=== PATIENT | male | born 1980 | race Hispanic/Latino ===

== ENCOUNTER 2020-09-24 23:49 | Emergency (ER) | payer SELFPAY ==
--- NOTE | ~2020-09-24 | CT_ITS ---
EXAMINATION: CT abdomen pelvis w con DATE: 09/25/2020 01:10 INDICATION: Abdominal pain. Vomiting. TECHNIQUE: Computed tomography (CT) of the abdomen and pelvis was performed with 100 mL Omnipaque 350 intravenous contrast. Automated exposure control and iterative reconstruction technique were employe d. The dose-length product was 747.72 mGy-cm. COMPARISON: None. FINDINGS: The visualized portions of the lung bases demonstrate mild atelectasis. No pleural effusion . The heart size is normal. No pericardial effusion. There is diffuse hepatic steatosis. The gallblad lyle, spleen, pancreas, adrenal glands, and kidneys are normal. There are no dilated loops of bowel. T he appendix is normal. There are no pathologically enlarged lymph nodes. There is no free intraperito [place] fluid. There is mild lumbar spondylosis. IMPRESSION: 1. Diffuse hepatic steatosis. Reviewed, dictated and finalized at location A.
[2020-09-25 00:31] VITALS: BP 165/123; PULSE 80; RESP 18; TEMP 36.9; O2SAT 100
[2020-09-25] MEDS: FAMOTIDINE 20 MG/2 ML VIAL IV PUSH (00:44)
[2020-09-25] MEDS: ONDANSETRON INJ 4 MG/2 ML VIAL IV PUSH ×2 (00:44→01:12)
[2020-09-25] MEDS: PANTOPRAZOLE SODIUM IV 40 MG VIAL IV PUSH (00:45)
[2020-09-25] MEDS: SODIUM CHLORIDE 0.9% IV 1,000 ML 999 ML IV CONT ×3 (00:45→03:42)
[2020-09-25 00:52] LABS: Basophils Percent Auto 0.3 % (0.2-1.2); Eosinophils Percent Auto 0.1 % (0-4.4); Hematocrit 47.3 % (42.0-52.0); Hemoglobin 16.5 g/dL (14.0-18.0); Immature Granulocyte Absolute 0.07 K/mm3 (0.00-0.031); Immature Granulocyte Percent A 0.6 % (0-0.5); Lymphocytes Absolute Auto 1.52 K/mm3 (0.9-3.2); Lymphocytes Percent Auto 13.9 % (18.3-44.2); Mean Corpuscular HGB Conc 34.9 g/dl (32-36); Mean Corpuscular Hemoglobin 34.6 pg (26-34); Mean Corpuscular Volume 99.2 fl (80-100); Mean Platelet Volume 10.2 fl (7.4-10.4); Monocytes Absolute Auto 0.8 K/mm3 (0.1-0.6); Monocytes Percent Auto 6.9 % (2.6-8.5); Neutrophils Absolute Auto 8.6 K/mm3 (1.3-6.7); Neutrophils Percent Auto 78.2 % (45.5-73.1); Platelet Count Result 169 k/mm3 (150-375); Red Blood Count 4.77 M/mm3 (4.6-6.20); Red Cell Distribution Width 13.2 % (11.5-14.5); White Blood Count 10.9 K/mm3 (4.5-10.0)
[2020-09-25 00:58] LABS: Estimated Glomerular Filt Rate > 60
[2020-09-25 01:03] LABS: Add Urine Microscopic? YES; Appearance Urine Cloudy (Clear); Bacteria Urine Trace /hpf; Bilirubin Urine Negative (Negative); Blood Urine Negative (Negative); Color Urine Yellow (Yellow); Glucose Urine UA Negative (Negative); Ketones Urine Negative (Negative); Leukocyte Esterase Ur Trace LEU/UL (Negative); Mucus Urine Moderate /lpf; Nitrate Urine Negative (Negative); Protein Urine 1+ mg/dL (Negative); Specific Grav Ur 1.019 (1.001-1.035); Squamous Epithelial Cell Urine Occasional /hpf (Few); WBC Urine 16-20 /hpf
[2020-09-25 01:08] LABS: Prothrombin Time 13.5 Seconds (11.1-14.7)
[2020-09-25 01:09] LABS: Partial Thromboplastin Time 24.9 SECONDS (22.3-36.8)
[2020-09-25 01:16] LABS: Albumin Level 4.4 g/dL (3.5-5.1); Alkaline Phosphatase 116 U/L (38-126); Anion Gap 12 mmol/L (8-16); Aspartate Amino Transferase 119 U/L (17-59); Bilirubin,Total 0.8 mg/dL (0.2-1.3); Blood Urea Nitrogen 5 mg/dL (9-20); Calcium 8.9 mg/dL (8.4-10.2); Carbon Dioxide 26 mmol/L (22-30); Chloride 103 mmol/L (98-107); Estimated Glomerular Filt Rate > 60; Glucose 130 mg/dL (75-110); Lipase 98 U/L (23-300); Potassium 3.4 mmol/L (3.4-5.0); Sodium 141 mmol/L (137-145)
[2020-09-25 01:37] LABS: Lactic Acid Reflex 4.4 mmol/L (0.7-2.1)
[2020-09-25 01:38] LABS: Alanine Aminotransferase 73 U/L (4-50)
[2020-09-25 01:58] VITALS: BP 164/100; PULSE 89; RESP 16; O2SAT 100
--- NOTE | 2020-09-25 02:00 | PC.NURSE ---
pt denies any nausea at this time
[2020-09-25] MEDS: PROCHLORPERAZINE EDISYLATE 10 MG/2 ML VIAL IV PUSH ×2 (02:37→03:30)
--- NOTE | 2020-09-25 02:42 | ED.GENADULT ---
HPI - General Adult General Chief complaint: Abdominal Pain Stated complaint: UPPER ABD PAIN X2D Time Seen by Provider: 09/25/20 00:19 History of Present Illness HPI narrative: Patient is a 39-year-old female who presents emerged part with chief complaint of epigastric pain nausea vomiting. The patient's reports that he has been having pain for the last several days reports that he has had nausea and vomiting a little bit of black material in the vomitus. Patient reports that he has pain more in the epigastric and upper quadrants of his abdomen the patient denies fever denies chills reports that he has been drinking a fair amount as well. Patient denies prior history of GI bleed denies history of gastritis. Related Data Allergies Allergy/AdvReac Type Severity Reaction Status Date / Time No Known Allergies Allergy Verified 09/25/20 01:20 Review of Systems Review of Systems: Narrative: A 10 system review of systems was completed on the patient and is negative except for what is stated in the HPI. Nursing and ancillary documentation was reviewed. PMFSH Comments Patient denies significant past medical history Social history the patient reports to moderate use of alcohol Exam Narrative: Exam Narrative: GENERAL: Well-appearing, well-nourished, and in no acute distress. HEAD: Normocephalic, atraumatic. EYES: PERRLA and EOMI. ENT: Nares clear, no rhinorrhea or epistaxis. Mucous membranes moist. NECK: Supple. CHEST: Clear to auscultation. No respiratory distress. HEART: Regular rate and rhythm. No murmur heard. Normal peripheral pulses. ABDOMEN: Soft, tenderness to palpation in the epigastric region, nondistended, normal active bowel sounds. EXTREMITIES: Normal range of motion. No edema. SKIN: Warm, dry, no rash. NEURO: No focal deficits. Alert and oriented x3. PSYCH: Normal mood and affect. Course Course Emergency Course: CT scan shows evidence of diffuse colitis Vital Signs Vital signs: Vital Signs Temperature 36.9 C 09/25/20 00:31 Pulse Rate 80 09/25/20 00:31 Respiratory Rate 18 09/25/20 00:31 Blood Pressure 165/123 H 09/25/20 00:31 Pulse Oximetry 100 09/25/20 00:31 Temperature 36.9 C 09/25/20 00:31 Pulse Rate 89 09/25/20 01:58 Respiratory Rate 16 09/25/20 01:58 Blood Pressure 164/100 H 09/25/20 01:58 Pulse Oximetry 100 09/25/20 01:58 Medical Decision Making Vital Signs Vital Signs: Vital Signs Temperature 36.9 C 09/25/20 00:31 Pulse Rate 80 09/25/20 00:31 Respiratory Rate 18 09/25/20 00:31 Blood Pressure 165/123 H 09/25/20 00:31 Pulse Oximetry 100 09/25/20 00:31 Temperature 36.9 C 09/25/20 00:31 Pulse Rate 89 09/25/20 01:58 Respiratory Rate 16 09/25/20 01:58 Blood Pressure 164/100 H 09/25/20 01:58 Pulse Oximetry 100 09/25/20 01:58 Lab Data Result diagrams: 09/25/20 00:42 09/25/20 00:56 Labs: Lab Results 09/25/20 09/25/20 09/25/20 Range/Units 00:42 00:42 00:42 WBC 10.9 H (4.5-10.0) K/mm3 RBC 4.77 (4.6-6.20) M/mm3 Hgb 16.5 (14.0-18.0) g/dL Hct 47.3 (42.0-52.0) % MCV 99.2 (80-100) fl MCH 34.6 H (26-34) pg MCHC 34.9 (32-36) g/dl RDW 13.2 (11.5-14.5) % Plt Count 169 (150-375) k/mm3 MPV 10.2 (7.4-10.4) fl Immature Gran % (Auto) 0.6 H (0-0.5) % Neut % (Auto) 78.2 H (45.5-73.1) % Lymph % (Auto) 13.9 L (18.3-44.2) % [place] % (Auto) 6.9 (2.6-8.5) % Eos % (Auto) 0.1 (0-4.4) % Baso % (Auto) 0.3 (0.2-1.2) % Lymph # (Auto) 1.52 (0.9-3.2) K/mm3 [place] # (Auto) 0.8 H (0.1-0.6) K/mm3 Eos # (Auto) 0.0 (0-0.3) K/mm3 Baso # (Auto) 0.0 (0.0-0.1) K/mm3 Abs Immat Gran (auto) 0.07 H (0.00-0.031) K/mm3 Absolute Neuts (auto) 8.6 H (1.3-6.7) K/mm3 Absolute Nucleated RBC 0.0 (0.0-0.012) K/mm3 Nucleated RBC % 0.0 (0.0-0.2) % PT 13.5 (11.1-14.7) Seconds INR 1.0 APTT 24.9 (22.3-36.8) S
[2020-09-25] MEDS: SODIUM CHLORIDE 0.9% IV 1,000 ML 999 ML (03:45)
[2020-09-25 04:21] LABS: Reflex Lactic Acid Yes or No Add Lactic
[2020-09-25] MEDS: CIPROFLOXACIN 500 MG TAB PO (04:50)
[2020-09-25] MEDS: metroNIDAZOLE 250 MG TABLET 500 MG PO (04:50)
[2020-09-25 04:56] VITALS: BP 148/99; PULSE 80; RESP 18; O2SAT 99
== END 2020-09-25 04:56 | disposition home or self-care (01) ==
PROVIDERS: Emergency Provider Emergency Medicine
DX: K52.9 Noninfective gastroenteritis and colitis, unspecified (principal)
CPT/HCPCS: 36415; 74177; 80053; 81001; 83605; 83690; 85025; 85610; 85730; 87086; 87088; 96361; 96374; 96375; 96376; 99284; A9270; C9113; J0780; J2405; J7030; Q9967